=== PATIENT | female | born 1950 | race Caucasian/White ===

== ENCOUNTER 2019-08-16 08:41 | Emergency (ER) | payer BC, MEDICARE ==
--- OUTSIDE RECORDS SUMMARY | 2019-08-16 08:51 | XMS REPORT | Continuity of Care Document ---
:1950 External Reference #:[id number] Author Name Devon Mcnamara M.D. (transmitted by agent of provider Ai Morales) Address [address] [place] [id number] Problems Description No Information Available Social History Type Date Description Comments Sex Unknown Tobacco Use Start: Unknown End: Unknown Used To Smoke Cigarettes But Quit. ETOH Use Current Alcohol Use - 1-3 Days A Week. Allergies, Adverse Reactions, Alerts Description No Known Drug Allergies Medications Active Medications SIG Qnty Indications Ordering Provider Date Levothyroxine Sodium 1 tab every 90tabs Devon Mcnamara, 07/06/2016 morning M.D. 88mcg Tablets Calcium + D 1 by mouth twice 60tabs Unknown 600mg Tablets a day Vitamin D3 Super Unknown Strength 2000Unit Tablets B-12 Unknown Tablet Immunizations Description No Information Available Vital Signs Date Vital Result Comment 06/25/2019 9:08am Weight 148.00 lb Height 65 inches 5'5" BMI (Body Mass Index) 24.6 kg/m2 BP Systolic 125 mmHg BP Diastolic 79 mmHg Heart Rate 98 /min O2 % BldC Oximetry 95 % Body Temperature 97.6 F Pain Level 0 06/25/2015 8:35am Weight 144.00 lb Height 65 inches 5'5" BMI (Body Mass Index) 24.0 kg/m2 BP Systolic 124 mmHg BP Diastolic 64 mmHg Heart Rate 68 /min O2 % BldC Oximetry 94 % Body Temperature 98.5 F Results Description No Information Available Procedures Description No Information Available Medical Devices Description No Information Available Encounters Description No Information Available Assessments Description No Information Available Plan of Treatment No Information Available Functional Status Description No Information Available Mental Status Description No Information Available Referrals Description No Information Available
--- OUTSIDE RECORDS SUMMARY | 2019-08-16 08:51 | XMS REPORT | Continuity of Care Document ---
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 Problems Active Problems Provider Date Acquired thrombocytopenia Maya Swan, [facility] Onset: 09/26/2014 Osteopenia Maya Swan, [facility] Onset: 08/24/2014 Hyperlipidemia Maya Swan, [facility] Onset: 09/19/2012 Neoplasm of breast Maya Swan, [facility] Onset: 07/26/2011 Note: right, 2004 Hypothyroidism Maya Swan, [facility] Onset: 07/24/2011 Malignant neoplasm of female breast Maya Nascimento, DO Onset: 08/09/2015 Age-related cataract Maya Swan, [facility] Onset: 09/13/2015 Note: OU Incomplete right bundle branch block ArvillaMaya, [facility] Onset: 2015 Localized, primary osteoarthritis Tasia Guallpa PA Onset: 11/06/2017 Neoplasm of uncertain behavior of soft ArvillaMaya, [facility] Onset: 2017 tissues Personal history of primary malignant Maya Nascimento DO Onset: 06/26/2018 neoplasm of breast Social History Type Date Description Comments Sex Unknown Tobacco Use Start: Unknown End: Former Cigarette Smoker (smoked 1985 till Unknown 1990) ETOH Use Occasionally consumes beer Tobacco Use Start: Unknown End: Patient is a former Unknown smoker Recreational Drug Use Denies Drug Use Smoking Status Reviewed: 08/26/18 Patient is a former smoker Allergies, Adverse Reactions, Alerts Description No Known Drug Allergies Medications Active Medications SIG Qnty Indications Ordering Provider Date Calcium 600 + D twice a day Lamberto Ortiz DO 04/09/2015 [id number] Tablets Vitamin B-12 1 by mouth every uAbrie Starks, 09/25/2014 500mcg day MD Tablets Synthroid 1 po qd Unknown 88mcg Tablets Vitamin D3 1 caps by mouth Unknown 400Unit every daily Capsules Immunizations CPT Code Status Date Vaccine Reaction Lot # U-Flu Given 05/24/2018 Influenza,Unspecified 53097 Given 05/24/2018 Influenza High Dose 20961 Given 08/24/2017 Pneumococcal Conjugate none [id number] Vaccine 13 Valent For Intramuscular Use 97605 Given 06/10/2017 Influenza High Dose done at [place] [address] Q2038 Given 06/10/2016 Influenza Vaccine (Fluzone) Age 3 And Older Q2038 Given 05/29/2015 Influenza Vaccine (Fluzone) Age 3 And Older 71121 Given 06/27/2013 flu vaccination 89887 Given 09/16/2012 Pneumovax Injection 16142 Given 06/17/2012 flu vaccination 33504 Given 06/04/2006 flu vaccination 87636 Given 07/15/2002 flu vaccination 21036 Given 06/13/2001 flu vaccination 09332 Given 05/06/2001 Pneumovax Injection Vital Signs Date Vital Result Comment 06/27/2019 7:50am BP Systolic 142 mmHg BP Diastolic 84 mmHg Body Temperature 97.8 F Heart Rate 85 /min Respiratory Rate 16 /min Weight 144.00 lb O2 % BldC Oximetry 98 % Pain Level 0 08/26/2018 12:57pm BP Systolic Sitting Left Arm 138 mmHg BP Diastolic Sitting Left Arm 80 mmHg Body Temperature 98.6 F Heart Rate 66 /min Respiratory Rate 16 /min Height 65.5 inches 5'5.50" Weight 147.00 lb BMI (Body Mass Index) 24.1 kg/m2 BSA (Body Surface Area) 1.75 m2 Thayer body weight in kilograms 58 kg O2 % BldC Oximetry 99 % Results Test Acquired Date Facility Test Result H/L Range Note CBC 06/27/2019 [facility] White Blood 3.8 K/uL Normal 3.1-10.7 1 W/Automated [address] Count Diff [place], [place] [id number] [phone] Red Blood Count 5.05 M/uL Normal 3.90-5.40 Hemoglobin 15.5 gm/dL Normal 11.6-15.8 Hematocrit 46.6 % High 36.0-46.1 Mean Cell Volume 92.3 fl Normal 80.9-99.0 Mean Corpuscular HGB 30.7 pg Normal 25.9-32.7 Mean Corpuscular HGB Conc 33.3 g/dL Normal 30.8-34.3 Platelet Count 202 K/uL Normal 155-360 Red Cell Distri Width SD 45.6 fl Normal 36-47 Red Cell Distri Width %CV 13.4 % Normal 11.7-14.4 Mean Platelet Volume 13.2 fl High 8.9-12.4 Neut% 64.8 % Normal 40.4-72.8 Lymph % 24.7 % Normal 20.0-42.0 Amelia % 6.8 % Normal 4.3-13.2 Eo% 2.6 % Normal 0.0-6.6 Bas% 0.8 % Normal 0.0-1.1 Immature Grans 0.3 % Normal 0.0-5.0 NRBC % 0.0 /100WBC < 10/ 100 WBC Neut# 2.46 K/uL Normal 1.8-7.0 Lymph # 0.94 K/uL Low 1.0-4.0 Amelia # 0.26 K/uL Low 0.3-0.9 Eos # 0.10 K/uL Normal 0.0-0.5 Baso # 0.03 K/uL Normal 0.0-0.1 Immature Grans Absolute 0.01 K/uL NRBC # 0.00 K/uL Comprehensive Metabolic 06/27/2019 [facility] Glucose 60 mg/dL Low 74-[address] [place], [place] [id number] [phone] BUN 11 mg/dL Normal 7-18 Creatinine 1.0 mg/dL Normal 0.6-1.3 Glom Filtration Rate, Estimate 59 mL/min >60 If >60 mL/min >60 2 BUN/Creat 11.0 ratio Sodium 142 mmol/L Normal 136-145 Potassium 3.6 mmol/L Normal 3.5-5.1 Chloride 109 mmol/L High 98-107 Carbon Dioxide 28 mmol/L Normal 21-32 Anion Gap 5 mEq/L Low 8-16 Calcium 9.0 mg/dL Normal 8.5-10.1 Total Protein 7.0 g/dL Normal 6.4-8.2 Albumin 3.9 g/dL Normal 3.4-5.0 Globulin 3.1 g/dL Normal 1.9-4.3 Alb/Glob 1.3 ratio Bilirubin,Total 0.4 mg/dL Normal 0.2-1.0 Sgot/Ast 10 U/L Low 15-37 3 SGPT/Alt 17 U/L Normal 12-78 Alkaline Phosphatase 77 U/L Normal 45-117 Laboratory test 06/27/2019 [facility] CA 27.29 26.9 U/mL 0.0-38.6 4 finding [address] [place], [place] [id number] [phone] Iron-Tibc-%Sat 06/27/2019 [facility] Serum Iron 82 g/dL Normal 50-170 [address] [place], [place] [address] [phone] Total Iron Binding Capacity 277 g/dL Normal 250-450 Transferrin %Saturation 30 % Normal 12-57 Laboratory test 06/27/2019 [facility] Ferritin 47 ng/mL Normal 8-252 finding [address] [place], [place] [id number] [phone] Vitamin B12 And 06/27/2019 [facility] Vitamin B12 1442 pg/mL High 193-986 Folate [address] [place], [place] [id number] [phone] Folic Acid 19.9 ng/mL High 3.1-17.5 Laboratory test 06/27/2019 [facility] Vitamin 44.7 30.0-100.0 5 finding [address] D,25-Hydroxy ng/mL [place], [place] [address] [phone] 1 D48.1 2 Note: Persistent reduction for 3 months or more in an eGFR <60 mL/min/1.73 m2 defines CKD. Patients with eGFR values >/=60 mL/min/1.73 m2 may also have CKD if evidence of persistent proteinuria is present. The original MDRD equation for estimated GFR is not valid for patients less than 18 years of age. Additional information may be found at www.kdoqi.org. 3 Values below the stated reference ranges of AST and ALT can be seen in normal populations. Clinical correlation is suggested. 4 [employer]ens [employer] Immunochemiluminometric Methodology (ICMA) Values obtained with different assay methods or kits cannot be used interchangeably. Results cannot be interpreted as absolute evidence of the presence or absence of malignant disease. Performed at: - [facility] [address] [id number] Corporate Travel Counselor: Pau Mercedes MD, Phone: [phone] 5 Vitamin D deficiency has been defined by the [place] of [employer] and an Endocrine Society practice guideline as a level of serum 25-OH vitamin D less than 20 ng/mL (1,2). The Endocrine Society went on to further define vitamin D insufficiency as a level between 21 and 29 ng/mL (2). 1. IOM ([place] of Medicine). 2010. Dietary reference intakes for calcium and D. [place]: The National Academies Press. 2. Sue MF, [place], Cornelius BEAUCHAMP, et al. Evaluation, treatment, and prevention of vitamin D deficiency: an Endocrine Society clinical practice guideline. JCEM. 2010; 96(7):1911-30. Performed at: - [facility] [address] [id number] Corporate Travel Counselor: Pau Mercedes MD, Phone: [phone] Procedures Date Code Description Status 07/25/2018 [id number] Mammogram Completed 07/24/2017 [id number] Mammogram Completed 07/20/2016 [id number] Mammogram Completed 07/19/2015 [id number] Mammogram Completed 08/24/2014 [id number] Bone Mineral Density Test Completed 08/20/2001 [id number] Colonoscopy Completed Medical Devices Description No Information Available Encounters Description No Information Available Assessments Date Code Description Provider 06/27/2019 Z85.3 Personal history of malignant neoplasm of Maya Nascimento DO breast Plan of Treatment Future Appointment(s):06/28/2020 8:00 am - Maya Nascimento DO at Oncology Office Functional Status Functional Condition Comment Date Status Glasses Active Mental Status Description No Information Available Referrals Description No Information Available
[2019-08-16 09:07] VITALS: BP 126/70
--- NOTE | 2019-08-16 09:21 | UC ---
Respiratory Complaint HPI - HPI Summary HPI Summary: Cough, chest and head congestion for over a week. Chest hurts with cough. denies fever, sob.. [place] light headed on Sunday only, no other times - History of Current Complaint Chief Complaint: UCRespiratory Stated Complaint: COUGH, CONGESTION, SINUS COMPLAINT Time Seen by Provider: 08/16/19 09:17 Pain Intensity: 4 Pain Scale Used: 0-10 Numeric Character: Cough: Nonproductive Aggravating Factors: Recumbent Position Alleviating Factors: OTC Meds - Allergies/Home Medications Allergies/Adverse Reactions: Allergies Allergy/AdvReac Type Severity Reaction Status Date / Time No Known Allergies Allergy Verified 08/16/19 09:07 Home Medications: Home Medications Levothyroxine TAB* [Synthroid TAB*] 88 mcg PO DAILY 08/16/19 [History Confirmed 08/16/19] PMH/Surg Hx/FS Hx/Imm Hx Previously Healthy: Yes Endocrine History: Thyroid Disease - Surgical History Surgical History: Yes Surgery Procedure, Year, and Place: LUMPECTOMY 2003. THYROID REMOVED 1995 - Social History Alcohol Use: Occasionally Substance Use Type: None Smoking Status (MU): Never Smoked Tobacco Review of Systems All Other Systems Reviewed And Are Negative: Yes Constitutional: Negative: Fever Skin: Negative: Rash ENT: Positive: Sinus Congestion. Negative: Sore Throat, Sinus Pain/Tenderness Respiratory: Positive: Cough, Other - +pleuritic chest pain Gastrointestinal: Negative: Vomiting, Nausea Neurological: Negative: Headache Physical Exam Triage Information Reviewed: Yes Appearance: Well-Appearing Vital Signs: Initial Vital Signs Temp 99.6 F 08/16/19 09:03 Pulse 78 08/16/19 09:03 Resp 18 08/16/19 09:03 BP 126/70 08/16/19 09:03 Pulse Ox 96 08/16/19 09:03 Vital Signs Reviewed: Yes Eyes: Positive: Conjunctiva Clear ENT: Positive: Pharynx normal, TMs normal, Uvula midline Neck: Positive: Supple Respiratory: Positive: Lungs clear, Other: - +coughing when she inhales deeply w / pleurisy Cardiovascular Exam: Normal Neurological: Positive: Alert Skin: Negative: Rashes Respiratory Course/Dx - Course Course Of Treatment: Nasal congestion and cough x1 wk. Pleuritic pain. Good O2 and afebrile. Neg RAPID FLU. Appears to be Bronchitis viral etiology. Discussed w/ pt. how to treat symptoms and no indication for antibx. Return if worsening. - Differential Dx/Diagnosis Differential Diagnosis/HQI/PQRI: Asthma, Bronchitis, Lower Resp Infection, Other Provider Diagnosis: Bronchitis Discharge ED - Sign-Out/Discharge Documenting (check all that apply): Patient Departure All imaging exams completed and their final reports reviewed: No Studies - Discharge Plan Condition: Good Disposition: HOME Prescriptions: Benzonatate CAP* [Tessalon 100 MG CAP*] 100 mg PO TID PRN 5 Days #15 cap PRN Reason: Cough Patient Education Materials: Acute Bronchitis (ED) Referrals: Maya Swan PA [Primary Care Provider] - Additional Instructions: If worsening please return. - Billing Disposition and Condition Condition: GOOD Disposition: Home - Attestation Statements Provider Attestation: Per institutional requirements, I have reviewed the chart, however, I was not consulted specifically or made aware of this patient by the midlevel provider. I did not personally evaluate, interact with , or disposition this patient.
[2019-08-16 09:48] LABS: Influenza A Molecular NEGATIVE (Negative); Influenza B Molecular NEGATIVE (Negative)
== END 2019-08-16 09:57 | disposition home or self-care (01) ==
LOC: UCCORT 08:41
DX: J40 Bronchitis, not specified as acute or chronic (principal); E07.9 Disorder of thyroid, unspecified; R09.81 Nasal congestion; Z79.890 Hormone replacement therapy
CPT/HCPCS: 99201; G0463